=== PATIENT | female | born 1970 | race Caucasian/White ===

== ENCOUNTER 2022-12-27 06:38 | Outpatient (REF) | payer BC, SELFPAY ==
[2022-12-27 11:08] LABS: MANUAL DIFF FLAG NO
[2022-12-27 11:32] LABS: Basophils Percent Auto 0.9 % (0-2); Eosinophils Absolute Auto 0.1 X10*3/uL (0.0-0.4); Eosinophils Percent Auto 3.6 % (0-4); Hematocrit 39.5 % (37.0-47.0); Lymphocytes Absolute Auto 1.4 X10*3/uL (1.2-4.9); Lymphocytes Percent Auto 40.4 % (20-40); Mean Corpuscular HGB Conc 32.9 g/dl (31.0-35.0); Mean Corpuscular Hemoglobin 28.4 pg (27.0-33.0); Mean Corpuscular Volume 86.2 fL (80.0-98.0); Mean Platelet Volume 12.7 fL (9.4-12.3); Monocytes Absolute Auto 0.3 X10*3/uL (0.1-1.2); Monocytes Percent Auto 7.5 % (2-11); Neutrophils Absolute Auto 1.6 x10*3/uL (2.0-8.3); Neutrophils Percent Auto 47.6 % (45-73); Platelet Count 181 X10*3/uL (160-400); Red Blood Count 4.58 X10*6/uL (4.20-5.50); Red Cell Distribution Width 12.7 % (11.0-16.0); White Blood Count 3.3 X10*3/uL (4.8-10.8)
[2022-12-27 11:58] LABS: Alanine Aminotransferase 10 U/L (0-31); Albumin Level 4.3 g/dL (3.5-5.0); Alkaline Phosphatase 63 U/L (39-117); Anion Gap 12 (12-20); Aspartate Amino Transferase 12 U/L (5-31); Bilirubin Total 1.4 mg/dL (0.0-1.0); Blood Urea Nitrogen 21 mg/dL (9-16); Calcium 9.5 mg/dL (8.4-10.2); Carbon Dioxide 27 mmol/L (22-29); Chloride 106 mmol/L (96-108); Cholesterol 248 mg/dL; Estimated Glomerular Filt Rate > 60; Glucose Fasting 100 mg/dL (60-99); HDL Cholesterol 70 mg/dL; LDL Cholesterol Calculated 160 mg/dl; Potassium 3.9 mmol/L (3.3-5.1); Sodium 141 mmol/L (135-145); Total Protein 7.1 g/dL (6.5-8.0); Triglycerides 93 mg/dL
[2022-12-27 12:17] LABS: Free T4 (Free Thyroxine) 0.99 ng/dL (0.71-1.85); Thyroid Stimulating Hormone 1.73 uIU/mL (0.32-4.0)
== END 2022-12-27 06:39 | disposition home or self-care (01) ==
LOC: HO.HMGCLDS 06:38
PROVIDERS: PCP Family Medicine; Visit Provider Family Medicine
DX: R53.83 Other fatigue (principal); G47.00 Insomnia, unspecified; E78.00 Pure hypercholesterolemia, unspecified
CPT/HCPCS: 36415; 80053; 80061; 84439; 84443; 85025

== ENCOUNTER 2023-05-06 11:56 | Emergency (ER) | payer BC, SELFPAY ==
--- NOTE | ~2023-05-06 | XR_ITS ---
EXAMINATION: XR CHEST CLINICAL INFORMATION: Chest pain COMPARISON: 2019 TECHNIQUE: Frontal view of the chest was obtained. FINDINGS: No significant abnormality is noted involving the heart, lungs, mediastinum, bony thorax or soft tissues. XR/XR chest 1V IMPRESSION: Unremarkable examination.
--- NOTE | ~2023-05-06 | US_ITS ---
EXAMINATION: US ABDOMEN LIMITED CLINICAL INFORMATION: Right upper quadrant pain. COMPARISON: None available. TECHNIQUE: Real-time imaging of the right upper quadrant abdominal viscera. FINDINGS: GALLBLADDER: Multiple gallstones present. No gallbladder wall thickening or pericholecystic fluid. Common bile duct 0.6 cm. US/US abdomen limited Impression: Cholelithiasis.
--- NOTE | 2023-05-06 11:58 | ECG_ITS ---
Test Reason : CHEST PAIN Blood Pressure : / mmHG Vent. Rate : 065 BPM Atrial Rate : 065 BPM P-R Int : 122 ms QRS Dur : 088 ms QT Int : 412 ms P-R-T Axes : 046 055 026 degrees QTc Int : 428 ms Normal sinus rhythm Nonspecific ST and T wave abnormality Borderline ECG No previous ECGs available Referred By: Mary Jane Pineda Electronically Signed By:JACINDA PERSON
[2023-05-06 11:59] VITALS: BP 150/85; PULSE 75; RESP 18; TEMP 36.7; O2SAT 99; BMI 24.5
--- NOTE | 2023-05-06 11:59 | ED_ITS ---
<Statement entered by Brett Cruz MD - 05/06/23 20:58> This is a note that was started by the physician clinical physician assistant at triage. Please see my more complete note. HPI - General Adult General Chief complaint: Abdominal Pain Stated complaint: pain from abd up into chest and back Time Seen by Provider: 05/06/23 12:55 Related Data Previous Rx's Medication Instructions Recorded omeprazole 40 mg capsule,delayed 40 mg PO DAILY #30 caps 05/06/23 release sucralfate 1 gram tablet 1 g PO TID PRN abdominal pain #60 05/06/23 tabs Allergies Allergy/AdvReac Type Severity Reaction Status Date / Time sulfamethoxazole Allergy Unknown Verified 05/06/23 11:59 [From Bactrim] trimethoprim [From Bactrim] Allergy Unknown Verified 05/06/23 11:59 PMFSH Past Medical History Medical History (Updated 05/06/23 @ 15:07 by Brett Cruz MD) No significant past medical history Surgical History (Updated 02/07/21 @ 16:08 by Sue Talbot RN) History of breast lump/mass excision Social History Social History Advance Directives: No Physical Exam ED Vital Signs: Vital Signs - 24 hr 05/06/23 11:59 Temperature 98.0 F Pulse Rate 75 Respiratory Rate 18 Blood Pressure 150/85 H Pulse Oximetry 99 Oxygen Delivery Method Room Air BMI result Body Mass Index 24.5 Course Course Course Narrative: This is an RME: Additional HPI, ROS, PE not included below will be deferred to primary provider. 52 year old female presents with a burning sensation to the pit of her stomach out woke up 5 this morning. Describes as a burning pain that is now going up to her chest Medications Administered Discontinued Medications Generic Name Dose Route Start Last Admin Trade Name Freq PRN Reason Stop Dose Admin Al Hydroxide/Mg Hydroxide 30 ml 05/06/23 11:58 05/06/23 15:46 Magnesium Hydrox/Alum Hydrox 30 Ml Oral.Susp PO 05/06/23 11:59 Not Given ONCE ONE Belladonna Alkaloids/Phenobarbital 10 ml 05/06/23 11:58 05/06/23 15:46 Phenobarb/Hyoscy/Atropine/Scop 10 Ml Elixir PO 05/06/23 11:59 Not Given ONCE ONE Sodium Chloride 1,000 mls @ 999 mls/hr 05/06/23 13:15 12/25/23 15:46 Ns IV 05/06/23 14:15 Not Given .Q1H1M CLARK Ketorolac Tromethamine 15 mg 05/06/23 13:12 05/06/23 15:46 Ketorolac Tromethamine 15 Mg/Ml Vial IVPUSH 05/06/23 13:13 Not Given ONCE ONE Ondansetron HCl 4 mg 05/06/23 11:58 05/06/23 15:46 Ondansetron Odt 4 Mg Tab.Rapdis TRANSLINGU 05/06/23 11:59 Not Given ONCE ONE Pantoprazole Sodium 40 mg 05/06/23 13:12 05/06/23 15:46 Pantoprazole Sodium 40 Mg/10 Ml Vial IVPUSH 05/06/23 13:13 Not Given ONCE ONE Medical Decision Making Medical Decision Making MDM Narrative: Please see more complete note Lab Data 05/06/23 12:15 05/06/23 12:14 Labs: Lab Results 05/06/23 05/06/23 05/06/23 Range/Units 12:14 12:15 12:16 WBC 5.3 (4.8-10.8) X10*3/uL RBC 4.87 (4.20-5.50) X10*6/uL Hgb 14.0 (12.0-16.0) g/dl Hct 40.6 (37.0-47.0) % MCV 83.4 (80.0-98.0) fL MCH 28.7 (27.0-33.0) pg MCHC 34.5 (31.0-35.0) g/dl RDW 12.5 (11.0-16.0) % Plt Count 200 (160-400) X10*3/uL MPV 12.0 (9.4-12.3) fL Immature Gran % (Auto) 0.2 (0.0-0.4) % Neut % (Auto) 78.3 H (45-73) % Lymph % (Auto) 16.7 L (20-40) % [place] % (Auto) 3.6 (2-11) % Eos % (Auto) 0.6 (0-4) % Baso % (Auto) 0.6 (0-2) % Lymph # (Auto) 0.9 L (1.2-4.9) X10*3/uL [place] # (Auto) 0.2 (0.1-1.2) X10*3/uL Eos # (Auto) 0.0 (0.0-0.4) X10*3/uL Baso # (Auto) 0.0 (0.0-0.2) X10*3/uL Abs Immat Gran (auto) 0.01 (0.00-0.03) X10*3/uL Absolute Neuts (auto) 4.1 (2.0-8.3) x10*3/uL Absolute Nucleated RBC 0.000 (0.0-0.012) X10*3/uL Nucleated RBC % (auto) 0.0 (0.0-0.2) /100WBC PT 12.1 (11.1-13.3) SEC INR 1.0 (0.9-1.1) Sodium 140 (135-145) mmol/L Potassium 3.9 (3.3-5.1) mmol/L Chloride 103 (96-108) mmol/L Carbon Dioxide 26 (22-29) mmol/L Anion Gap 15 (12-20) BUN 18 H (9-16) mg/dL Creatinine 0.76 (0.5-1.4) mg/dL Estim Creat Clear Calc 66.8 Estimated GFR > 60 Random Glucose 118 H (60-115) mg/dL Calcium 10.7 H D (8.4-10.2) mg/dL Magnesium 2.0 (1.6-2.6) mg/dL Total Bilirubin 1.1 H (0.0-1.0) mg/dL AST 16 (5-31) U/L ALT 13 (0-31) U/L Alkaline Phosphatase 78 (39-117) U/L Troponin I High Sens < 2.7 (<3.5-17.0) ng/L C-Reactive Protein < 0.10 (< or = 0.50) mg/dL Total Protein 7.8 (6.5-8.0) g/dL Albumin 4.8 (3.5-5.0) g/dL Lipase 23 (8-78) U/L Urine Color Yellow Urine Appearance Clear Urine pH 6.0 (5.0-9.0) Ur Specific [place] 1.010 (1.005-1.025) Urine Protein Negative (Neg-Trace) mg/dL Urine Glucose (UA) Negative (Negative) mg/dL Urine Ketones Negative (Negative) mg/dL Urine Blood Negative (Negative) Urine Nitrite Negative (Negative) Ur Leukocyte Esterase Negative (Negative) COVID-19 (REINA) Negative (Negative) COVID-19 Clin Com See Note Discharge Plan Discharge Clinical Impression: Acute epigastric pain Patient Disposition: Home, Self-Care Instructions: Gastritis (ED) Additional Instructions: I think that your pain was most likely being caused by a condition called gastritis. Gastritis is any irritation of the lining of the stomach related to stomach acid. I do not think your symptoms were the sign of a heart attack. You were found to have gallstones in her gallbladder. However I think this is what we call an ?incidental finding. This means that although we found that you have gallstones in her gallbladder I do not think the gallstones are causing her symptoms today. I have sent a prescription for a drug called omeprazole to your pharmacy. This is an acid reducing medication that is often used for gastritis. I have also sent a medication called sucralfate which she may use on an as- needed basis in addition to the omeprazole if you have additional episodes. I would therefore recommend he take the omeprazole daily regularly for least a couple of weeks. Please contact your regular doctor's office and make a follow- up appointment to discuss this episode further. If at any point you are significantly worse please return to the emergency room for another evaluation. Prescriptions: New omeprazole 40 mg capsule,delayed release(DR/EC) 40 mg PO DAILY Qty: 30 0RF sucralfate 1 gram tablet 1 g PO TID PRN (Reason: abdominal pain) Qty: 60 0RF Referrals: Huber Sadler MD [Primary Care Provider] - Interventions: ED Discharge Assessment Last Done: 05/06/23 16:05 Discharge Date/Time: 05/06/23 16:06
[2023-05-06 12:22] LABS: MANUAL DIFF FLAG NO
[2023-05-06 12:23] LABS: Appearance Urine Clear; Color Urine Yellow; Glucose Urine UA Negative (Negative); Leukocyte Esterase Urine Negative (Negative); Nitrite Urine Negative (Negative); Urine Blood Negative (Negative); Urine Ketones Negative (Negative); Urine Protein Negative (Neg-Trace)
[2023-05-06 12:23] LABS: Basophils Percent Auto 0.6 % (0-2); Eosinophils Percent Auto 0.6 % (0-4); Hematocrit 40.6 % (37.0-47.0); Imm Gran Abs Auto 0.01 X10*3/uL (0.00-0.03); Imm Gran Pct Auto 0.2 % (0.0-0.4); Lymphocytes Absolute Auto 0.9 X10*3/uL (1.2-4.9); Lymphocytes Percent Auto 16.7 % (20-40); Mean Corpuscular HGB Conc 34.5 g/dl (31.0-35.0); Mean Corpuscular Hemoglobin 28.7 pg (27.0-33.0); Mean Corpuscular Volume 83.4 fL (80.0-98.0); Monocytes Absolute Auto 0.2 X10*3/uL (0.1-1.2); Monocytes Percent Auto 3.6 % (2-11); Neutrophils Absolute Auto 4.1 x10*3/uL (2.0-8.3); Neutrophils Percent Auto 78.3 % (45-73); Platelet Count 200 X10*3/uL (160-400); Red Blood Count 4.87 X10*6/uL (4.20-5.50); Red Cell Distribution Width 12.5 % (11.0-16.0); White Blood Count 5.3 X10*3/uL (4.8-10.8)
[2023-05-06 12:29] LABS: Prothrombin Time 12.1 SEC (11.1-13.3)
[2023-05-06 12:38] LABS: COVID-19 Test Negative (Negative); IDNOW Serial# 58CA691E
[2023-05-06 12:57] LABS: Alanine Aminotransferase 13 U/L (0-31); Albumin Level 4.8 g/dL (3.5-5.0); Alkaline Phosphatase 78 U/L (39-117); Anion Gap 15 (12-20); Aspartate Amino Transferase 16 U/L (5-31); Bilirubin Total 1.1 mg/dL (0.0-1.0); Blood Urea Nitrogen 18 mg/dL (9-16); Calcium 10.7 mg/dL (8.4-10.2); Carbon Dioxide 26 mmol/L (22-29); Chloride 103 mmol/L (96-108); Creatinine Clr Calc Pharmacy 66.8; Estimated Glomerular Filt Rate > 60; Glucose Random 118 mg/dL (60-115); Potassium 3.9 mmol/L (3.3-5.1); Sodium 140 mmol/L (135-145); Total Protein 7.8 g/dL (6.5-8.0)
--- NOTE | 2023-05-06 13:13 | ED_ITS ---
HPI - General Adult General Chief complaint: Abdominal Pain Stated complaint: pain from abd up into chest and back Time Seen by Provider: 05/06/23 12:55 History of Present Illness HPI narrative: The patient is a very pleasant and generally healthy 52-year-old. She says that at around 05:00 she developed pain in her epigastrium. The pain spread so that she felt it did radiate into her left chest anteriorly and also into her back and to the right posteriorly. She took some Pepcid and other [id number] antacids but did not have any significant relief and ultimately came to the emergency room for evaluation. Not had a fever. No vomiting. She says that when she 1st got here her pain was about a 9/10. She received a dose of Maalox and with minor improvement in her discomfort. She has had no pain or swelling in her legs. The pain is slightly worse if he takes a very deep breath but she otherwise does not feel that the symptoms associated with any breathing problems. She has no pain or swelling in her legs. The patient says that she has had 2 previous episodes of something similar. The 1st occasion was around giving when she had epigastric pain that lasted for about an hour. On that occasion the pain was confined to the epigastrium and did not radiate to the chest or the back. She thinks that she had a 2nd similar episode a few weeks ago. The patient has no history of abdominal surgeries. She says that she is normally quite healthy. She is on no medications. She is a nonsmoker. Her father at age 88. Her mother is alive at age 93. Related Data Previous Rx's Medication Instructions Recorded omeprazole 40 mg capsule,delayed 40 mg PO DAILY #30 caps 05/06/23 release sucralfate 1 gram tablet 1 g PO TID PRN abdominal pain #60 05/06/23 tabs Allergies Allergy/AdvReac Type Severity Reaction Status Date / Time sulfamethoxazole Allergy Unknown Verified 05/06/23 11:59 [From Bactrim] trimethoprim [From Bactrim] Allergy Unknown Verified 05/06/23 11:59 Review of Systems 2 Review of Systems: Yes all other systems are reviewed and are negative PENDING SALE TO [facility] Past Medical History Medical History (Updated 05/06/23 @ 15:07 by Brett Cruz MD) No significant past medical history Surgical History (Updated 02/07/21 @ 16:08 by Sue Talbot RN) History of breast lump/mass excision Social History Social History Advance Directives: No Physical Exam ED Vital Signs: Vital Signs - 24 hr 05/06/23 11:59 Temperature 98.0 F Pulse Rate 75 Respiratory Rate 18 Blood Pressure 150/85 H Pulse Oximetry 99 Oxygen Delivery Method Room Air BMI result Body Mass Index 24.5 Const Other: Patient is awake, alert, pleasant, cooperative. The patient does not appear toxic HENMT Other: Face is symmetrical and unremarkable. Mucous membranes moist Eyes Other: Pupils are round equal, conjunctivae clear Neck Other: No neck swelling. Resp Other: Lungs are clear, no increased work of breathing. Cardio Other: The patient has regular rate and rhythm no murmur GI Other: Some mild upper abdominal tenderness with deep palpation. No definite rebound or guarding. Negative Sears's. Back/Spine/Pelvis Other: No CVA percussion tenderness on either side Skin Other: Skin is dry and unremarkable Neuro Other: The patient is awake and alert. She is oriented and appropriate. Nontoxic. Neurologically intact. Extrem Other: No calf swelling or tenderness. No asymmetry. Medications Administered Discontinued Medications Generic Name Dose Route Start Last Admin Trade Name Freq PRN Reason Stop Dose Admin Al Hydroxide/Mg Hydroxide 30 ml 05/06/23 11:58 05/06/23 15:46 Magnesium Hydrox/Alum Hydrox 30 Ml Oral.Susp PO 05/06/23 11:59 Not Given ONCE ONE Belladonna Alkaloids/Phenobarbital 10 ml 05/06/23 11:58 05/06/23 15:46 Phenobarb/Hyoscy/Atropine/Scop 10 Ml Elixir PO 05/06/23 11:59 Not Given ONCE ONE Sodium Chloride 1,000 mls @ 999 mls/hr 05/06/23 13:15 05/06/23 15:46 Ns IV 05/06/23 14:15 Not Given .Q1H1M CLARK Ketorolac Tromethamine 15 mg 05/06/23 13:12 05/06/23 15:46 Ketorolac Tromethamine 15 Mg/Ml Vial IVPUSH 05/06/23 13:13 Not Given ONCE ONE Ondansetron HCl 4 mg 05/06/23 11:58 05/06/23 15:46 Ondansetron Odt 4 Mg Tab.Rapdis TRANSLINGU 12/25/23 11:59 Not Given ONCE ONE Pantoprazole Sodium 40 mg 05/06/23 13:12 05/06/23 15:46 Pantoprazole Sodium 40 Mg/10 Ml Vial IVPUSH 05/06/23 13:13 Not Given ONCE ONE Medical Decision Making Medical Decision Making [facility] Narrative: The patient is a very pleasant and generally healthy 52-year-old presents with epigastric pain radiating into her left chest and also into her right back. Clinically she does not look unwell. My suspicion for acute coronary syndrome pulmonary embolism in this patient would be very low. Additionally any other vascular problems seems to be a very low likelihood. She is a nonsmoker, no history of diabetes, hypertension, or elevated cholesterol. No family history of significant early vascular disease. EKG is unremarkable. She has had several hours of pain and her troponin is undetectable. Labs are unremarkable. I performed a bedside ultrasound that showed multiple small gallstones but there did not seem to be a sonographic Sears's. I obtained formal ultrasound that also showed cholelithiasis but no signs of cholecystitis. Clinically the patient's symptoms improved before she received any of the medications that have been ordered for her and she was comfortable being discharged. She was prescribed omeprazole and sucralfate for presumed gastritis. Lab Data 05/06/23 12:15 05/06/23 12:14 Labs: Lab Results 05/06/23 05/06/23 05/06/23 Range/Units 12:14 12:15 12:16 WBC 5.3 (4.8-10.8) X10*3/uL RBC 4.87 (4.20-5.50) X10*6/uL Hgb 14.0 (12.0-16.0) g/dl Hct 40.6 (37.0-47.0) % MCV 83.4 (80.0-98.0) fL MCH 28.7 (27.0-33.0) pg MCHC 34.5 (31.0-35.0) g/dl RDW 12.5 (11.0-16.0) % Plt Count 200 (160-400) X10*3/uL MPV 12.0 (9.4-12.3) fL Immature Gran % (Auto) 0.2 (0.0-0.4) % Neut % (Auto) 78.3 H (45-73) % Lymph % (Auto) 16.7 L (20-40) % [place] % (Auto) 3.6 (2-11) % Eos % (Auto) 0.6 (0-4) % Baso % (Auto) 0.6 (0-2) % Lymph # (Auto) 0.9 L (1.2-4.9) X10*3/uL [place] # (Auto) 0.2 (0.1-1.2) X10*3/uL Eos # (Auto) 0.0 (0.0-0.4) X10*3/uL Baso # (Auto) 0.0 (0.0-0.2) X10*3/uL Abs Immat Gran (auto) 0.01 (0.00-0.03) X10*3/uL Absolute Neuts (auto) 4.1 (2.0-8.3) x10*3/uL Absolute Nucleated RBC 0.000 (0.0-0.012) X10*3/uL Nucleated RBC % (auto) 0.0 (0.0-0.2) /100WBC PT 12.1 (11.1-13.3) SEC INR 1.0 (0.9-1.1) Sodium 140 (135-145) mmol/L Potassium 3.9 (3.3-5.1) mmol/L Chloride 103 (96-108) mmol/L Carbon Dioxide 26 (22-29) mmol/L Anion Gap 15 (12-20) BUN 18 H (9-16) mg/dL Creatinine 0.76 (0.5-1.4) mg/dL Estim Creat Clear Calc 66.8 Estimated GFR > 60 Random Glucose 118 H (60-115) mg/dL Calcium 10.7 H D (8.4-10.2) mg/dL Magnesium 2.0 (1.6-2.6) mg/dL Total Bilirubin 1.1 H (0.0-1.0) mg/dL AST 16 (5-31) U/L ALT 13 (0-31) U/L Alkaline Phosphatase 78 (39-117) U/L Troponin I High Sens < 2.7 (<3.5-17.0) ng/L C-Reactive Protein < 0.10 (< or = 0.50) mg/dL Total Protein 7.8 (6.5-8.0) g/dL Albumin 4.8 (3.5-5.0) g/dL Lipase 23 (8-78) U/L Urine Color Yellow Urine Appearance Clear Urine pH 6.0 (5.0-9.0) Ur Specific [place] 1.010 (1.005-1.025) Urine Protein Negative (Neg-Trace) mg/dL Urine Glucose (UA) Negative (Negative) mg/dL Urine Ketones Negative (Negative) mg/dL Urine Blood Negative (Negative) Urine Nitrite Negative (Negative) Ur Leukocyte Esterase Negative (Negative) COVID-19 (REINA) Negative (Negative) COVID-19 Clin Com See Note Independent Interpretation I performed an independent interpretation of an: EKG Interpretation: EKG 1207 shows normal sinus rhythm at 65 beats per minute. Unremarkable EKG. Discharge Plan Discharge Clinical Impression: Acute epigastric pain Patient Disposition: Home, Self-Care Instructions: Gastritis (ED) Additional Instructions: I think that your pain was most likely being caused by a condition called gastritis. Gastritis is any irritation of the lining of the stomach related to stomach acid. I do not think your symptoms were the sign of a heart attack. You were found to have gallstones in her gallbladder. However I think this is what we call an ?incidental finding. This means that although we found that you have gallstones in her gallbladder I do not think the gallstones are causing her symptoms today. I have sent a prescription for a drug called omeprazole to your pharmacy. This is an acid reducing medication that is often used for gastritis. I have also sent a medication called sucralfate which she may use on an as- needed basis in addition to the omeprazole if you have additional episodes. I would therefore recommend he take the omeprazole daily regularly for least a couple of weeks. Please contact your regular doctor's office and make a follow- up appointment to discuss this episode further. If at any point you are significantly worse please return to the emergency room for another evaluation. Prescriptions: New omeprazole 40 mg capsule,delayed release(DR/EC) 40 mg PO DAILY Qty: 30 0RF sucralfate 1 gram tablet 1 g PO TID PRN (Reason: abdominal pain) Qty: 60 0RF Referrals: Huber Sadler MD [Primary Care Provider] - Interventions: ED Discharge Assessment Last Done: 05/06/23 16:05 Discharge Date/Time: 05/06/23 16:06
[2023-05-06 13:22] LABS: Troponin-I High Sensitivity < 2.7 ng/L (<3.5-17.0)
[2023-05-06 13:29] LABS: C Reactive Protein < 0.10 mg/dL (< or = 0.50); Lipase 23 U/L (8-78)
--- NOTE | 2023-05-06 15:47 | PC.NURSE ---
Pt refused all medications, requesting to be d.c
== END 2023-05-06 16:06 | disposition home or self-care (01) ==
PROVIDERS: Physician Assistant; Emergency Provider Emergency Medicine; PCP Family Medicine
DX: R10.13 Epigastric pain (principal); Z11.52 Encounter for screening for COVID-19
CPT/HCPCS: 36415; 71045; 76705; 80053; 81003; 83690; 83735; 84484; 85025; 85610; 86140; 87635; 93005; 99283; 99284

== ENCOUNTER → 2023-05-06 11:58 | Outpatient (BNV) | payer BC, SELFPAY | PROVIDERS: Emergency Provider Emergency Medicine; PCP Family Medicine; Visit Provider Internal Medicine | DX: R07.9 Chest pain, unspecified (principal) | CPT/HCPCS: 93010 ==